=== PATIENT | male | born 1955 | race Caucasian/White ===

== ENCOUNTER 2019-06-08 12:20 | Emergency (ER) | payer BC, OTHER ==
[~2019-06-08] VITALS: Ht 177.8 cm; Wt 86.2 kg
[2019-06-08 12:20] VITALS: BP_SYST 150
--- NOTE | 2019-06-08 12:20 | NUR ---
BROUGHT BACK TO BED #8 AND TRIAGED. REPORT GIVEN TO KANWAL
--- NOTE | 2019-06-08 12:33 | NUR ---
ER Dr. Mooney at bedside examining patient.
--- NOTE | 2019-06-08 12:37 | NUR ---
Partial amputation to left 3rd finger after bending metal piece while building at home an metal scrap took off part of tip of finger including nail.
[2019-06-08] MEDS ORDERED: HYDROcodone/ACETAMIN 10-325 MG TAB PO ONE (12:45)
[2019-06-08] MEDS ORDERED: IBUPROFEN 800 MG TABLET PO ONE (12:45)
[2019-06-08] MEDS ORDERED: DIPH-TET-PERTUS Vaccine 0.5 ML VIAL (ADACEL) I.M. ONE (12:45)
[2019-06-08] MEDS ORDERED: BACITRACIN 1 GM OINT TP ONE (12:45)
--- NOTE | 2019-06-08 13:40 | NUR ---
Medicated per MD orders. Tetanus given to lt deltoid. Tolerated well. No adverse reaction.
[2019-06-08] MEDS ORDERED: cefTRIAXone 1 GM VIAL IM ONE (14:00)
[2019-06-08] MEDS ORDERED: LIDOCAINE 1%, 20 ML MDV 20 ML ONE (14:21)
[2019-06-08 14:50] VITALS: BP_SYST 142
--- NOTE | 2019-06-08 14:50 | NUR ---
Patient given written and verbal discharge instructions and verbalizes understanding. ER MD discussed with patient the results and treatment provided. Patient in stable condition. ID arm band removed. IV catheter removed intact and dressing applied, no active bleeding. Rx of norco, motrin given. Patient educated on pain management and to follow up with PMD. Pain Scale 0/10. Opportunity for questions provided and answered.
== END 2019-06-08 14:50 | disposition home or self-care (01) ==
LOC: SED 12:20
DX: S68.113A Complete traumatic metacarpophalangeal amputation of left middle finger, initial encounter (principal); W33.19XA Accidental malfunction of other larger firearm, initial encounter; Y93.H3 Activity, building and construction; Y92.098 Other place in other non-institutional residence as the place of occurrence of the external cause; Y99.8 Other external cause status
CPT/HCPCS: 73130; 90471; 90715; 96372; 99284; J0696; J2001